=== PATIENT | female | born 1975 | race Caucasian/White ===

== ENCOUNTER → 2021-04-04 10:27 | Outpatient (CLI) | payer OTHER, SELFPAY ==
[2021-04-04 19:08] LABS: SARS-CoV-2 RNA PCR Negative
== END ==
PROVIDERS: PCP Family Medicine; Visit Provider Nurse Practitioner Gerontology
DX: R68.89 Other general symptoms and signs (principal); Z20.822 Contact with and (suspected) exposure to COVID-19
CPT/HCPCS: C9803; U0003; U0005

== ENCOUNTER → 2021-04-26 08:07 | Outpatient (CLI) | payer OTHER, SELFPAY ==
[2021-04-26 16:45] LABS: SARS-CoV-2 RNA PCR Positive
== END ==
PROVIDERS: Nurse Practitioner Gerontology; PCP Family Medicine; Visit Provider Family Medicine
DX: U07.1 COVID-19 (principal)
CPT/HCPCS: C9803; U0003; U0005

== ENCOUNTER 2021-11-09 09:08 | Outpatient (CLI) | payer OTHER, SELFPAY ==
--- NOTE | 2021-11-09 09:12 | EST_ITS ---
Patient Info Name: Elisa Galvan Age: 45 years : 1975 Gender: Female Ht: 67 in Wt: 320 lbs BSA: 2.70 m2 HR: 112 bpm BP: 125 / 81 mmHg Heart Rhythm: Sinus Rhythm Exam Date: 11/09/2021 11:00 AM Exam Location: [facility] Patient Status: Outpatient Admit Date: 11/09/2021 Staff Ordering Physician: Chris Mohr DO Land Leases [employer] Rentals Manager: [place] Attending Provider: Chris Mohr DO Exercise Technologist: Ana Rosa Vasquez RDCS Exercise Physician: Chris Mohr DO Exam Type: CA stress echo w contrast Study Info Treadmill exercise stress echocardiogram is performed. Contrast administered to opacify the left ventricle and to improve the deliniation of the left ventricular endocardial borders. Contrast/Agitated Saline Contrast/Ag. Saline: Definity Amount: 4.00 ml Administered By: Millie Huggins Existing IV Access: No New IV Access: Dorsum of Hand and Left Site Condition: IV removed and Site dressing applied Summary 1. 1. Negative Corky exercise stress test for ischemic ST changes by ECG criteria. 2. 2. Reduced functional capacity, achieving 6 METs of workload. 3. 3. Rapid HR response to exercise. 4. 4. Appropriate HR recovery at 1 minute post exercise. 5. 5. Negative stress echocardiogram for ischemia by wall motion analysis. 6. 6. Patient informed of the above results. Stress Echo Findings Left Ventricle Definity was used to improve endocardial visualization.Appropriate increase in LV endocardial thickening with systole. Appropriate augmentation of contractility with systole. No obvious wall motion abnormality. Left Ventricle Definity was used. Preserved LV systolic function, no wall motion abnormality. Protocol: Corky Stress ECG Details Stage: REST Duration (min): 2 min : 24 sec Speed (mph): 0.0 Grade (%): 0 HR (bpm): 109 SBP (mmHg): 125 DBP (mmHg): 81 METS: --- Stage: REST Duration (min): 35 min : 43 sec Speed (mph): 0.0 Grade (%): 0 HR (bpm): 122 SBP (mmHg): 125 DBP (mmHg): 81 METS: --- Stage: STAGE 1 Duration (min): 1 min : 0 sec Speed (mph): 1.7 Grade (%): 10 HR (bpm): 140 SBP (mmHg): 125 DBP (mmHg): 81 METS: --- Stage: STAGE 1 Duration (min): 2 min : 0 sec Speed (mph): 1.7 Grade (%): 10 HR (bpm): 151 SBP (mmHg): 125 DBP (mmHg): 81 METS: --- Stage: STAGE 1 Duration (min): 3 min : 0 sec Speed (mph): 1.7 Grade (%): 10 HR (bpm): 156 SBP (mmHg): 165 DBP (mmHg): 56 METS: --- Stage: STAGE 2 Duration (min): 1 min : 0 sec Speed (mph): 2.5 Grade (%): 12 HR (bpm): 162 SBP (mmHg): 165 DBP (mmHg): 56 METS: --- Stage: STAGE 2 Duration (min): 1 min : 1 sec Speed (mph): 0.0 Grade (%): 0 HR (bpm): 162 SBP (mmHg): 165 DBP (mmHg): 56 METS: --- Stage: RECOVERY Duration (min): 0 min : 58 sec Speed (mph): 0.0 Grade (%): 0 HR (bpm): 142 SBP (mmHg): 134 DBP (mmHg): 54 METS: --- Stage: RECOVERY Duration (min):
[2021-11-09] MEDS: PERFLUTREN LIPID MICROSPHERES 1.5 ML VIAL DILUTED TO 10 ML TOTAL VOLUME IV PUSH (11:30)
== END 2021-11-09 09:09 | disposition home or self-care (01) ==
PROVIDERS: PCP Family Medicine; Visit Provider Internal Medicine Cardiovascular Disease
DX: R06.09 Other forms of dyspnea (principal)
CPT/HCPCS: 93351; C8930; Q9957

== ENCOUNTER 2024-08-13 09:09 | Outpatient (CLI) | payer OTHER, SELFPAY ==
--- NOTE | ~2024-08-13 | XR_ITS ---
Left Hand Technique: PA and lateral views were obtained. Clinical History: Injury Findings: No acute fracture or dislocation is seen. Osseous alignment is anatomic. Joint spaces are p reserved. Soft tissues are unremarkable. Impression: Unremarkable left hand. Reviewed, dictated and finalized at location M. Impression: Unremarkable left hand.
== END 2024-08-13 09:10 | disposition home or self-care (01) ==
LOC: MICIMG 09:10
PROVIDERS: PCP Family Medicine; Visit Provider Student in an Organized Health Care Education/Training Program
DX: S69.92XA Unspecified injury of left wrist, hand and finger(s), initial encounter (principal); X58.XXXA Exposure to other specified factors, initial encounter
CPT/HCPCS: 73120

== ENCOUNTER 2024-12-23 21:08 | Emergency (ER) | payer OTHER, SELFPAY ==
--- NOTE | ~2024-12-23 | CT_ITS ---
EXAMINATION: CTA brain carotid DATE: 12/24/2024 05:40 INDICATION: Neck pain. Injury. TECHNIQUE: Computed tomographic angiography (CTA) of the head was performed without and with 100 mL Omnipaque-350 intravenous contrast. CTA of the neck was performed with intravenous contrast. Automated exposure control and iterative reconstruction technique were employed. The dose-length product was 3006.11 mGy- cm. Maximum intensity projection and volume rendered 3D-reconstructions were created by the technologist on a separate workstation. COMPARISON: None. FINDINGS: HEAD CTA: There is no intracranial hemorrhage, acute infarction, or abnormal intracranial mass lesion. There is an area of low attenuation in the left frontal lobe white matter, which is normal as an isolated finding. The ventricles are normal in size. The orbits are normal. The paranasal sinuses are clear. The mastoid air cells are normal. The vertebral arteries are codominant. There is no significant stenosis of basilar artery or the posterior cerebral arteries. Left posterior communicating artery is normal. A right posterior communicating artery is not identified. There is no significant stenosis of the intracranial internal carotid arteries or anterior or middle cerebral arteries. Anterior communicating artery is normal. There is no aneurysm. NECK CTA: There is a 1.9 x 1.6 cm mass in right parotid gland. There are no pathologically enlarged lymph nodes. There is no significant stenosis of the vertebral arteries. There is no visible plaque in the proximal internal carotid arteries. There is 0% stenosis of the proximal right internal carotid artery relative to normal distal artery lumen diameter (NASCET criteria). There is 0% stenosis of the proximal left internal carotid artery relative to normal distal artery lumen diameter. There is moderate cervical spondylosis. IMPRESSION: 1. Normal aging brain. 2. No aneurysm or significant intracranial arterial stenosis. 3. 0% stenosis of the proximal internal carotid arteries relative to normal distal artery lumen diameters (NASCET criteria). 4. 1.9 cm right parotid mass. The differential diagnosis includes benign mixed tumor, Warthin tumor, and less likely ari metastatic disease or primary malignancy. Reviewed, dictated and finalized at location E. IMPRESSION: 1. Normal aging brain. 2. No aneurysm or significant intracranial arterial stenosis. 3. 0% stenosis of the proximal internal carotid arteries relative to normal dis lamonte artery lumen diameters (NASCET criteria). 4. 1.9 cm right parotid mass. The differential diagnosis includes benign mixed tumor, Warthin tumor, and less likely ari metastatic disease or primary ramakrishna bruno.
[2024-12-23 21:10] VITALS: BP 152/86; PULSE 112; RESP 18; TEMP 36.6; O2SAT 100
[2024-12-24 03:13] VITALS: BP 151/94; PULSE 93; RESP 20; TEMP 36.8; O2SAT 100
[2024-12-24] MEDS: dexAMETHasone SOD PHOS INJ 10 MG/ML 1 ML VIAL IV PUSH (03:47)
[2024-12-24] MEDS: HYDROcodone/acetaminophen (*CRX) 5-325 MG TABLET 1 TAB PO (03:47)
[2024-12-24] MEDS: diazePAM INJ (*CRX) 10 MG/2 ML SYRINGE 5 MG IV PUSH (03:47)
[2024-12-24] MEDS: LIDOCAINE 5% PATCH 1 PATCH TRANSDERM (03:47)
[2024-12-24 03:48] VITALS: BP 141/79; PULSE 109; RESP 18; O2SAT 97
[2024-12-24 03:58] LABS: Hematocrit 42.5 % (37.0-47.0); Hemoglobin 14.3 g/dL (12.0-15.0); Immature Granulocyte Percent A 0.4 % (0-0.5); Lymphocytes Absolute Auto 1.60 K/mm3 (0.9-3.2); Mean Corpuscular HGB Conc 33.6 g/dl (32-36); Mean Corpuscular Hemoglobin 29.5 pg (26-34); Mean Corpuscular Volume 87.8 fl (80-100); Nucleated Red Blood Cells Absolute Auto 0.000 K/mm3 (0.0-0.012); Nucleated Red Blood Cells Perc 0.0 % (0.0-0.2); Platelet Count Result 285 k/mm3 (150-375); Red Blood Count 4.84 M/mm3 (4.2-5.4); White Blood Count 13.8 K/mm3 (4.5-10.0)
[2024-12-24 04:11] LABS: Alanine Aminotransferase 19 U/L (6-35); Albumin Level 4.4 g/dL (3.5-5.1); Alkaline Phosphatase 77 U/L (38-126); Anion Gap 11 mmol/L (4-12); Aspartate Amino Transferase 19 U/L (14-36); Bilirubin,Total 0.8 mg/dL (0.2-1.3); Blood Urea Nitrogen 12 mg/dL (7-17); Calcium 9.1 mg/dL (8.4-10.2); Carbon Dioxide 23 mmol/L (22-30); Chloride 100 mmol/L (98-107); Estimated CRCL calculation 126 ml/min; Estimated Glomerular Filt Rate > 60; Glucose 146 mg/dL (65-110); Potassium 4.0 mmol/L (3.4-5.0); Sodium 134 mmol/L (137-145); Total Protein 8.3 g/dL (6.3-8.2)
--- NOTE | 2024-12-24 04:49 | ED_ITS ---
HPI - General Adult General Chief complaint: Neck Pain/Injury <Arian Schofield MD - Last Filed: 12/24/24 04:51> Stated complaint: neck spasms <Arian Schofield MD - Last Filed: 12/24/24 04:51> Time Seen by Provider: 12/24/24 03:18 <Arian Schofield MD - Last Filed: 12/24/24 04:51> History of Present Illness HPI narrative: Patient is a 49-year-old female who presents emergency department with chief complaint of neck pain and spasms patient reports she has been having some neck pain for several days and then went to the chiropractor was adjusted and had some improvement but then started having spasms in her neck that shot up to her left ear the patient states the pain is worse with movement and improved with rest the patient denies bowel or bladder incontinence denies numbness or tingling denies weakness in the arms or numbness or tingling in the arms. The patient denies syncope <Arian Schofield MD - Last Filed: 12/24/24 04:51> Related Data Home medications: Home Medications ?Medication ?Instructions ?Recorded ?Confirmed ?Last Taken ?Type omega 9-xil-ero-fish oil 1,000 mg 1 cap PO BID 3 11/23/24 Unknown History (120 mg-180 mg) capsule (Fish Oil) <Arian Schofield MD - Last Filed: 12/24/24 04:51> Allergies/adverse reactions: Allergies Allergy/AdvReac Type Severity Reaction Status Date / Time No Known Allergies Allergy Unknown Verified 11/23/24 07:50 <Arian Schofield MD - Last Filed: 12/24/24 04:51> Review of Systems 2 Review of Systems: A 10 system review of systems was completed on the patient and is negative except for what is stated in the HPI. Nursing and ancillary documentation was reviewed. <Arian Schofield MD - Last Filed: 12/24/24 04:51> PMFSH Past Medical History Medical History: Medical History Bronchitis Flu-like symptoms Strep pharyngitis Subacute sinusitis Prediabetes Mixed hyperlipidemia Morbid obesity due to excess calories PCOS (polycystic ovarian syndrome) Hypothyroidism (acquired) <Arian Schofield MD - Last Filed: 12/24/24 04:51> Surgical History Surgical History: Surgical History History of tympanostomy tube placement History of laparoscopic cholecystectomy <Arian Schofield MD - Last Filed: 12/24/24 04:51> Family History Family History: Family History Father Hypertension Family history of coronary artery disease Family history of type 2 diabetes mellitus Thyroid cancer Bladder cancer Dementia Parkinson's disease Mother Hypertension Family history of type 2 diabetes mellitus Sibling Family history of type 2 diabetes mellitus Other Diabetes mellitus Family history of alcoholism Family history of malignant neoplasm of breast in first degree relative Family history of malignant neoplasm of cervix <Arian Schofield MD - Last Filed: 12/24/24 04:51> Social History Social History: Social History Social History: Smoking packs per day: 1 Smoking cigarettes per day: 20.0 Smoking status: Former smoker Tobacco type: cigarettes Second hand tobacco smoke exposure: No Smoking end date: 03/11/96 Alcohol intake: never Substance use: never Substance use type: does not use Do You Feel Safe in your Home?: Yes Lack of Transportation: No Lack of Food: Never True Current Housing: I Have Housing Concerned About Future Housing: No Difficulty Paying Gas/Electric Bills: No Difficulty Paying for Meds: No Currently Unemployed: No Education: Don't Know Difficulty w/ Childcare or Family Care: No Living arrangements: with family Occupation/Education: occupation Gender identity (if verbalized by the patient): Female Sexual Orientation (if Verbalized by the Patient): Straight or Heterosexual <Arian Schofield MD - Last Filed: 12/24/24 04:51> Exam 2 Narrative: GENERAL: Well-appearing, well-nourished, and in no acute distress. HEAD: Normocephalic, atraumatic. EYES: PERRLA and EOMI. ENT: Nares clear, no rhinorrhea or epistaxis. Mucous membranes moist. NECK: Supple. Tenderness to palpation the paraspinous muscles in the neck CHEST: Clear to auscultation. No respiratory distress. HEART: Regular rate and rhythm. No murmur heard. Normal peripheral pulses. ABDOMEN: Soft, nontender, nondistended, normal active bowel sounds. EXTREMITIES: Normal range of motion. No edema. SKIN: Warm, dry, no rash. NEURO: No focal deficits. Alert and oriented x3. PSYCH: Normal mood and affect. <Arian Schofield MD - Last Filed: 12/24/24 04:51> Course Course Emergency Course: 06:00 - This patient was signed out to me by previous ED physician, Dr. Schofield pending CTA. 08:38 - CT angiogram brain and neck not concerning for aneurysm, dissection or acute vascular injury. CT of the neck and head demonstrated a 1.9 cm right parotid mass that is concerning for malignancy. On re-evaluation, the patient states she feels improved to though her pain is returning somewhat. Will discharge with recommendation for primary care and ENT follow-up in addition to pain medications and muscle relaxers. I discussed the findings and recommendations with the patient. Discussed return and emergency precautions including signs/symptoms of focal neural deficit and cauda equina. The patient voiced understanding and agreement with the plan. All questions answered to her satisfaction. <Abdirashid Estrada MD - Last Filed: 12/24/24 19:49> Vital Signs Vital signs: Vital Signs Temperature 97.8 F 12/23/24 21:10 Pulse Rate 112 H 12/23/24 21:10 Respiratory Rate 18 12/23/24 21:10 Blood Pressure 152/86 H 12/23/24 21:10 Pulse Oximetry 100 12/23/24 21:10 Oxygen Delivery Room Air 12/23/24 21:10 Temperature 98.2 F 12/24/24 03:13 Pulse Rate 100 12/24/24 08:30 Respiratory Rate 16 12/24/24 08:30 Blood Pressure 119/74 12/24/24 08:30 Pulse Oximetry 96 12/24/24 08:30 Oxygen Delivery Room Air 12/24/24 03:13 <Arian Schofield MD - Last Filed: 12/24/24 04:51> Vital Signs Temperature 97.8 F 12/23/24 21:10 Pulse Rate 112 H 12/23/24 21:10 Respiratory Rate 18 12/23/24 21:10 Blood Pressure 152/86 H 12/23/24 21:10 Pulse Oximetry 100 12/23/24 21:10 Oxygen Delivery Room Air 12/23/24 21:10 Temperature 98.2 F 12/24/24 03:13 Pulse Rate 100 12/24/24 08:30 Respiratory Rate 16 12/24/24 08:30 Blood Pressure 119/74 12/24/24 08:30 Pulse Oximetry 96 12/24/24 08:30 Oxygen Delivery Room Air 12/24/24 03:13 <Abdirashid Estrada MD - Last Filed: 12/24/24 19:49> Medical Decision Making MDM Narrative Medical decision making narrative: Plan: CT angiogram, pain control, reassess <Abdirashid Estrada MD - Last Filed: 12/24/24 19:49> Differential Diagnosis Differential Diagnosis: Aneurysm, dissection, cervical muscle strain, fracture, other <Abdirashid Estrada MD - Last Filed: 12/24/24 19:49> Vital Signs Vital Signs: Vital Signs Temperature 97.8 F 12/23/24 21:10 Pulse Rate 112 H 12/23/24 21:10 Respiratory Rate 18 12/23/24 21:10 Blood Pressure 152/86 H 12/23/24 21:10 Pulse Oximetry 100 12/23/24 21:10 Oxygen Delivery Room Air 12/23/24 21:10 Temperature 98.2 F 12/24/24 03:13 Pulse Rate 100 12/24/24 08:30 Respiratory Rate 16 12/24/24 08:30 Blood Pressure 119/74 12/24/24 08:30 Pulse Oximetry 96 12/24/24 08:30 Oxygen Delivery Room Air 12/24/24 03:13 <Arian Schofield MD - Last Filed: 12/24/24 04:51> Vital Signs Temperature 97.8 F 12/23/24 21:10 Pulse Rate 112 H 12/23/24 21:10 Respiratory Rate 18 12/23/24 21:10 Blood Pressure 152/86 H 12/23/24 21:10 Pulse Oximetry 100 12/23/24 21:10 Oxygen Delivery Room Air 12/23/24 21:10 Temperature 98.2 F 12/24/24 03:13 Pulse Rate 100 12/24/24 08:30 Respiratory Rate 16 12/24/24 08:30 Blood Pressure 119/74 12/24/24 08:30 Pulse Oximetry 96 12/24/24 08:30 Oxygen Delivery Room Air 12/24/24 03:13 <Abdirashid Estrada MD - Last Filed: 12/24/24 19:49> Lab Data Result diagrams: 12/24/24 03:49 12/24/24 03:49 <Arian Schofield MD - Last Filed: 12/24/24 04:51> Labs: Lab Results 12/24/24 Range/Units 03:49 WBC 13.8 H (4.5-10.0) K/mm3 RBC 4.84 (4.2-5.4) M/mm3 Hgb 14.3 (12.0-15.0) g/dL Hct 42.5 (37.0-47.0) % MCV 87.8 (80-100) fl MCH 29.5 (26-34) pg MCHC 33.6 (32-36) g/dl RDW 13.8 (11.5-14.5) % Plt Count 285 (150-375) k/mm3 MPV 10.3 (7.4-10.4) fl Immature Gran % (Auto) 0.4 (0-0.5) % Neut % (Auto) 81.8 H (45.5-73.1) % Lymph % (Auto) 11.6 L (18.3-44.2) % [place] % (Auto) 5.3 (2.6-8.5) % Eos % (Auto) 0.5 (0-4.4) % Baso % (Auto) 0.4 (0.2-1.2) % Lymph # (Auto) 1.60 (0.9-3.2) K/mm3 [place] # (Auto) 0.7 H (0.1-0.6) K/mm3 Eos # (Auto) 0.1 (0-0.3) K/mm3 Baso # (Auto) 0.1 (0.0-0.1) K/mm3 Abs Immat Gran (auto) 0.06 H (0.00-0.031) K/mm3 Absolute Neuts (auto) 11.3 H (1.3-6.7) K/mm3 Absolute Nucleated RBC 0.000 (0.0-0.012) K/mm3 Nucleated RBC % 0.0 (0.0-0.2) % Sodium 134 L (137-145) mmol/L Potassium 4.0 (3.4-5.0) mmol/L Chloride 100 (98-107) mmol/L Carbon Dioxide 23 (22-30) mmol/L Anion Gap 11 (4-12) mmol/L BUN 12 (7-17) mg/dL Creatinine 0.68 L (0.7-1.0) mg/dL Estim Creat Clear Calc 126 ml/min Estimated GFR > 60 (59 - ) Glucose 146 H (65-110) mg/dL Calcium 9.1 (8.4-10.2) mg/dL Total Bilirubin 0.8 (0.2-1.3) mg/dL AST 19 (14-36) U/L ALT 19 (6-35) U/L Alkaline Phosphatase 77 (38-126) U/L Total Protein 8.3 H (6.3-8.2) g/dL Albumin 4.4 (3.5-5.1) g/dL <Arian Schofield MD - Last Filed: 12/24/24 04:51> Lab Results 12/24/24 Range/Units 03:49 WBC 13.8 H (4.5-10.0) K/mm3 RBC 4.84 (4.2-5.4) M/mm3 Hgb 14.3 (12.0-15.0) g/dL Hct 42.5 (37.0-47.0) % MCV 87.8 (80-100) fl MCH 29.5 (26-34) pg MCHC 33.6 (32-36) g/dl RDW 13.8 (11.5-14.5) % Plt Count 285 (150-375) k/mm3 MPV 10.3 (7.4-10.4) fl Immature Gran % (Auto) 0.4 (0-0.5) % Neut % (Auto) 81.8 H (45.5-73.1) % Lymph % (Auto) 11.6 L (18.3-44.2) % [place] % (Auto) 5.3 (2.6-8.5) % Eos % (Auto) 0.5 (0-4.4) % Baso % (Auto) 0.4 (0.2-1.2) % Lymph # (Auto) 1.60 (0.9-3.2) K/mm3 [place] # (Auto) 0.7 H (0.1-0.6) K/mm3 Eos # (Auto) 0.1 (0-0.3) K/mm3 Baso # (Auto) 0.1 (0.0-0.1) K/mm3 Abs Immat Gran (auto) 0.06 H (0.00-0.031) K/mm3 Absolute Neuts (auto) 11.3 H (1.3-6.7) K/mm3 Absolute Nucleated RBC 0.000 (0.0-0.012) K/mm3 Nucleated RBC % 0.0 (0.0-0.2) % Sodium 134 L (137-145) mmol/L Potassium 4.0 (3.4-5.0) mmol/L Chloride 100 (98-107) mmol/L Carbon Dioxide 23 (22-30) mmol/L Anion Gap 11 (4-12) mmol/L BUN 12 (7-17) mg/dL Creatinine 0.68 L (0.7-1.0) mg/dL Estim Creat Clear Calc 126 ml/min Estimated GFR > 60 (59 - ) Glucose 146 H (65-110) mg/dL Calcium 9.1 (8.4-10.2) mg/dL Total Bilirubin 0.8 (0.2-1.3) mg/dL AST 19 (14-36) U/L ALT 19 (6-35) U/L Alkaline Phosphatase 77 (38-126) U/L Total Protein 8.3 H (6.3-8.2) g/dL Albumin 4.4 (3.5-5.1) g/dL <Abdirashid Estrada MD - Last Filed: 12/24/24 19:49> Discharge Plan Discharge Clinical Impression: Mass of right parotid gland Acute cervical myofascial strain Qualifiers: Encounter type: initial encounter Qualified Code(s): S16.1XXA - Strain of muscle, fascia and tendon at neck level, initial encounter <Arian Schofield MD - Last Filed: 12/24/24 04:51> Patient Disposition: Home <Arian Schofield MD - Last Filed: 12/24/24 04:51> Condition: Stable <Arian Schofield MD - Last Filed: 12/24/24 04:51> Instructions: Antibiotic Form, Cervical Strain (ED) <Arian Schofield MD - Last Filed: 12/24/24 04:51> Additional Instructions: You were seen in the emergency department. A CT scan of the head and neck was not concerning for injury to the blood vessels. A 1.9 cm mass was seen in the right parotid gland however. I recommend following up with an Ear Nose and Throat surgeon and considering MRI and potentially biopsy for further evaluation. If you develop difficulty breathing, difficulty swallowing, weakness/numbness, or if you have other emergent concerns for life, limb, or eyesight, return to the emergency department. <Arian Schofield MD - Last Filed: 12/24/24 04:51> Patient Language: Gibraltarian <Arian Schofield MD - Last Filed: 12/24/24 04:51> Prescriptions: New cyclobenzaprine 10 mg tablet 10 mg PO TID PRN (Reason: muscle spasm) Qty: 15 0RF lidocaine 5 % adhesive patch,medicated 1 patch topical DAILY Qty: 30 0RF Rx Instructions: leave on most painful area for up to 12 hrs naproxen 500 mg tablet 500 mg PO BID PRN (Reason: pain) Qty: 20 0RF No Action omega 7-ksb-lss-fish oil [Fish Oil] 1,000 mg (120 mg-180 mg) capsule 1 cap PO BID azelastine 137 mcg (0.1 %) aerosol,spray 137 mcg intranasal Q12H Qty: 30 0RF Rx Instructions: administer into each nostril spironolactone 100 mg tablet See Rx Instructions .ROUTE .COMPLEX Qty: 100 3RF Dose Instruction: TAKE 1 TABLET DAILY Rx Instructions: TAKE 1 TABLET DAILY hydroxyzine HCl 25 mg tablet 25 mg PO TID PRN (Reason: anxiety) Qty: 60 0RF fluticasone propionate 50 mcg/actuation spray,suspension 1 spray intranasal DAILY Qty: 48 0RF Rx Instructions: administer into each nostril desloratadine 5 mg tablet See Rx Instructions .ROUTE .COMPLEX Qty: 100 3RF Dose Instruction: TAKE 1 TABLET DAILY Rx Instructions: TAKE 1 TABLET DAILY rosuvastatin 5 mg tablet See Rx Instructions .ROUTE .COMPLEX Qty: 100 3RF Dose Instruction: TAKE 1 TABLET DAILY Rx Instructions: TAKE 1 TABLET DAILY escitalopram oxalate 10 mg tablet 10 mg PO DAILY Qty: 90 1RF metformin 1,000 mg tablet See Rx Instructions .ROUTE .COMPLEX Qty: 180 2RF Dose Instruction: TAKE 1 TABLET TWICE A DAY Rx Instructions: TAKE 1 TABLET TWICE A DAY irbesartan-hydrochlorothiazide 150-12.5 mg tablet See Rx Instructions .ROUTE .COMPLEX Qty: 100 2RF Dose Instruction: TAKE 1 TABLET DAILY Rx Instructions: TAKE 1 TABLET DAILY levothyroxine 175 mcg tablet 175 mcg PO DAILY Qty: 108 1RF Rx Instructions: 1 tab daily, 2 each sat and sun Mounjaro 10 mg/0.5 mL pen injector 10 mg subcut WEEKLY Qty: 6 2RF <Arian Schofield MD - Last Filed: 12/24/24 04:51> Follow-up/Referrals: Baldev Polk MD [Primary Care Provider, Family Practice] - 2 Weeks Sukumar Clay MD [Physician, Ear, Nose, Throat] - 2 Weeks Referral Note: 1.9cm Right parotid mass concerning for malignancy <Arian Schofield MD - Last Filed: 12/24/24 04:51> Time of Disposition: 09:02 <Arian Schofield MD - Last Filed: 12/24/24 04:51> 09:02 <Abdirashid Estrada MD - Last Filed: 12/24/24 19:49> Sign Out Sign Out Data: Patient Sign Out occurred on 12/24/24 at 06:11. Patient's care was discussed, and care was transferred from Arian Schofield MD to Abdirashid Estrada MD. <Arian Schofield MD - Last Filed: 12/24/24 04:51>
[2024-12-24 06:30] VITALS: BP 133/80; PULSE 95; RESP 18; O2SAT 94
[2024-12-24 07:15] VITALS: BP 131/89; PULSE 96; RESP 16; O2SAT 97
[2024-12-24 08:30] VITALS: BP 119/74; PULSE 100; RESP 16; O2SAT 96
[2024-12-24] MEDS: KETOROLAC 30 MG/ML VIAL (*BKC) IV PUSH (08:44)
== END 2024-12-24 09:28 | disposition home or self-care (01) ==
PROVIDERS: Emergency Medicine; Emergency Provider Preventive Medicine Aerospace Medicine; PCP Family Medicine
DX: S16.1XXA Strain of muscle, fascia and tendon at neck level, initial encounter (principal); K11.9 Disease of salivary gland, unspecified; R73.03 Prediabetes; E78.2 Mixed hyperlipidemia; E66.01 Morbid (severe) obesity due to excess calories; Z68.42 Body mass index [BMI] 45.0-49.9, adult; E28.2 Polycystic ovarian syndrome; E03.9 Hypothyroidism, unspecified; Z87.891 Personal history of nicotine dependence; Z90.49 Acquired absence of other specified parts of digestive tract; X58.XXXA Exposure to other specified factors, initial encounter
CPT/HCPCS: 36415; 70496; 70498; 80053; 85025; 96374; 96375; 99284; A9270; J1100; J1885; J3360; Q9967

== ENCOUNTER 2025-03-08 01:44 | Day surgery (SDC) | payer OTHER, SELFPAY ==
[2025-02-10 15:14] VITALS: BMI 46.3
--- OUTSIDE RECORDS SUMMARY | 2025-03-08 01:46 | XMS_ITS | Clinical Summary ---
Author Organization [facility] [place] Address [address] [place] [id number] Care Team Providers Care Diagnostic Tech Name Role Phone Cyndy Davidson MD Primary Care Provider [phone] Allergies No known active allergies Medications spironolactone (ALDACTONE) 100 mg tabletIndication s:PCOS (polycystic ovarian syndrome) Take 1 Tablet (100 mg) by mouth daily. 90 Tablet 3 12/14/2020 Active desloratadine (CLARINEX) 5 mg tabletIndication s:Allergic rhinitis, unspecified seasonality, unspecified trigger Take 1 Tablet (5 mg) by mouth daily. 90 Tablet 3 12/14/2020 Active minocycline (MINOCIN) 100 mg capsule Take 1 Capsule (100 mg) by mouth every 12 hours. 180 Capsule 3 12/14/2020 Active multivitamin (DAILY-ARIELLE) tablet Take 1 Tablet by mouth daily. Active omega 6-fyd-abs-fish oil (Fish OiL) 100-160-1,000 mg Capsule Take 1 Capsule by mouth 2 times daily. Active Jardiance 25 mg tablet Take 1 Tablet by mouth daily. 01/09/2022 Active irbesartan-hydro CHLOROthiazide (AVALIDE) 150-12.5 mg tablet Take 1 Tablet by mouth daily. 01/01/2022 Active cyanocobalamin (VITAMIN B-12) 500 mcg tablet Take 500 mcg by mouth daily. Active metFORMIN (GLUCOPHAGE) 1,000 mg tabletIndication s:Type 2 diabetes mellitus without complication, without long-term current use of insulin (CMS/HCC) Take 1 Tablet (1,000 mg) by mouth 2 times daily with meals. 180 Tablet 02/23/2022 Active levothyroxine 200 mcg tablet TAKE 1 TABLET DAILY 90 Tablet 09/18/2022 Active Active Problems Problem Noted Date Diagnosed Date Abnormal EKG 01/11/2022 PCOS (polycystic ovarian syndrome) 01/11/2022 Morbid obesity with BMI of 50.0-59.9, adult 1105/2021 Hypothyroidism 01/11/2022 Hyperlipidemia 01/11/2022 B12 deficiency 01/11/2022 PRICE (nonalcoholic steatohepatitis) 01/11/2022 DANIELLA (obstructive sleep apnea) 03/22/2021 Essential hypertension, benign 03/22/2021 Type 2 diabetes mellitus with other specified co mplication 03/22/2021 Morbid obesity 03/22/2021 Immunizations Immunization Administration Dates Next Due ([facility])(12 YR UP) COVID-19 VACCINE - EMERGENCY USE AUTHORIZATION, MRNA, [id number](PF) 30 MCG/0.3 ML IM SUSP 06/04/2020,05/12/2020 INFLUENZA VACCINE QUADRIVALENT 6 MOS UP PF IM Family History Medical History Relation Name Comments Diabetes Brother (twin) Hypertension Brother (twin) Cancer Father Willy bladder Diabetes Father Willy Esophageal Cancer Father Willy Heart Disease Father Willy Hypertension Father Willy Lung Cancer Father Willy Stroke Father Willy Heart Disease Maternal Grandfather Cisco SD Cancer Maternal Grandmother Cassy cervica l ca Ovarian Cancer Maternal Grandmother Cassy Diabetes Mother Bety Hypertension Mother Bety Kidney Disease Mother Bety Heart Disease Paternal Grandfather Unruly SD or stroke? Diabetes Sister Veronica Relation Name Status Comments Brother (twin) Alive Father Willy Alive Maternal Grandfather Cisco Maternal Grandmother Cassy Mother Bety Alive Paternal Grandfather Unruly Paternal Grandmother Sister Veronica Alive Social History Tobacco Use Types Packs/Day Years Used Date Smoking Tobacco: Never Smokeless Tobacco: Never Tobacco Cessation:Counseling Given: Not Answered Alcohol Use Standard Drinks/Week Comments Not Currently 0 (1 standard drink = 0.6 oz pur e alcohol) occasional Comments No Sex and Gender Information Value Date Recorded Sex Assigned at Not on file Legal Sex Female 3:13 PM CDT Gender Identity Not on file Sexual Orientation Not on file Last Filed Vital Signs Vital Sign Reading Time Taken Comments Blood Pressure 126/64 02/23/2022 9:03 AM TRANSPORTATION PROJECT MANAGER Pulse 82 02/23/2022 9:03 AM TRANSPORTATION PROJECT MANAGER Temperature 36.5 C (97.7 F) 02/23/2022 9:03 AM TRANSPORTATION PROJECT MANAGER Respiratory Rate 18 02/23/2022 9:03 AM TRANSPORTATION PROJECT MANAGER Oxygen Saturation 98% 02/23/2022 9:03 AM TRANSPORTATION PROJECT MANAGER Inhaled Oxygen Concentration - - Weight 141.1 kg (311 lb) 02/23/2022 9:03 AM TRANSPORTATION PROJECT MANAGER Height 167.6 cm (5' 6) 02/23/2022 9:03 AM TRANSPORTATION PROJECT MANAGER Body Mass Index 50.2 02/23/2022 9:03 AM TRANSPORTATION PROJECT MANAGER Plan of Treatment Health Maintenance Due Date Last Done Comments DIABETES ANNUAL FOOT EXAM 12/16/1993 DIABETES ANNUAL RETINAL EXAM 12/16/1993 DTAP/TDAP/TD VACCINES (1 - Tdap) 12/16/1994 HEPATITIS B VACCINES (1 of 3 - 19+ 3-dose series) 12/16/1994 HPV/Cotest (21-29) 12/16/1996 HPV/Cotest (30-65) 12/16/2005 BREAST CANCER SCREENING 10/17/2018 10/17/2017 CERVICAL CANCER SCREENING 10/17/2020 PAP SMEAR 10/17/2020 10/17/2017 COLORECTAL SCREENING 12/16/2020 Colorectal Cancer Screening 12/16/2020 FIT-DNA Q 3 years 12/16/2020 FIT/FOBT Q 1 year 12/16/2020 Flex Sig/CT Colonography Q 5 years 12/16/2020 LDL CHOLESTEROL ANNUAL 12/20/2021 12/20/2020 DIABETES HBA1C Q 6 MONTHS 08/24/2022 02/23/2022, 02/2021 DIABETES MICROALBUMIN ANNUAL SCREEN 02/23/202302/23 INFLUENZA VACCINE (#1) 2024 02/01/2021 COVID-19 Vaccine ( season) 2024, 05/12/2020 Procedures Procedure Name Priority Date/Time Associated Diagnosis Comments MICROALBUMIN/CREATI NINE RATIO, RANDOM UR Routine 02/23/2022 9:46 AM TRANSPORTATION PROJECT MANAGER Type 2 diabetes mellitus without complication, without long-term current use of insulin ([facility]) HEMOGLOBIN A1C Routine 02/23/2022 9:46 AM TRANSPORTATION PROJECT MANAGER Type 2 diabetes mellitus without complication, without long-term current use of insulin ([facility]) LIPID PANEL Routine 12/20/2020 9:07 AM CDT Benign hypertension Mixed hyperlipidemia PCOS (polycystic ovarian syndrome) Hypothyroidism, unspecified type from Last 3 Months or Most Recently Relevant to Health Maintenance Results * MICROALBUMIN/CREATININE RATIO, RANDOM UR (02/23/2022 9:46 AM TRANSPORTATION PROJECT MANAGER) Creatinine, Urine 39 20 - 275 mg/dL [facility] MICROALBUMIN, URINE <0.2 See Note: mg/dL [facility] Comment: Reference Range: Reference Range Not established MICROALBUMIN/CREAT RATIO, UR NOTE <30 mcg/mg creat [facility] Comment: NOTE: The urine albumin value is less than 0.2 mg/dL therefore we are unable to calculate excretion and/or creatinine ratio. The ADA defines abnormalities in albumin excretion as follows: Albuminuria Category Result (mcg/mg creatinine) Normal to Mildly increased <30 Moderately increased 30-299 Severely increased > OR = 300 The ADA recommends that at least two of three specimens collected within a 3-6 month period be abnormal before considering a patient to be within a diagnostic category. Test Performed at: [facility] [id number] [id number] Ankit Woo D.O., MPH Urine URINE SPECIMEN OBTAINED BY CLEAN CATCH PROCEDURE / Unknown 02/23/2022 9:46 AM TRANSPORTATION PROJECT MANAGER 02/24/2022 5:37 AM TRANSPORTATION PROJECT MANAGER Samantha Perez [facility] URINE ORDERABLES Final Result [facility] [phone] [facility] [id number] [id number] * (ABNORMAL) HEMOGLOBIN A1C (02/23/2022 9:46 AM TRANSPORTATION PROJECT MANAGER) HEMOGLOBIN A1C 6.5(H) <5.7 % of total Hgb [facility] Comment: For someone without known diabetes, a hemoglobin A1c value of 6.5% or greater indicates that they may have diabetes and this should be confirmed with a follow-up test. For someone with known diabetes, a value <7% indicates that their diabetes is well controlled and a value greater than or equal to 7% indicates suboptimal control. A1c targets should be individualized based on duration of diabetes, age, comorbid conditions, and other considerations. Currently, no consensus exists regarding use of hemoglobin A1c for diagnosis of diabetes for children. ESTIMATED AVERAGE GLUCOSE (MG/DL) 140 mg/dL [facility] ESTIMATED AVERAGE GLUCOSE (MMOL/L) 7.7 mmol/L [facility] Comment: Test Performed at: [facility] [address] [facility] [place] [address] Ankit Woo D.O., MPH Blood 02/23/2022 9:46 AM TRANSPORTATION PROJECT MANAGER 02/24/2022 5:50 AM TRANSPORTATION PROJECT MANAGER Samantha Perez [facility] CHEMISTRY ORDERABLES F inal Result [facility] [phone] [facility] [address] [facility] [place] [address] * (ABNORMAL) LIPID PANEL (12/20/2020 9:07 AM CDT) CHOLESTEROL 148 <200 mg/dL [facility] HDL 38(L) > OR = 50 mg/dL [facility] TRIGLYCERIDE 256(H) <150 mg/dL [facility] Comment: If a non-fasting specimen was collected, consider repeat triglyceride testing on a fasting specimen if clinically indicated. Barrett et al. J. of Clin. Lipidol. 2015;9:129-169. LDL CALCULATED 76 mg/dL (calc) [facility] Comment: Reference range: <100 Desirable range <100 mg/dL for primary prevention; <70 mg/dL for patients with CHD or diabetic patients with > or = 2 CHD risk factors. LDL-C is now calculated using the Marium calculation, which is a validated novel method providing better accuracy than the Friedewald equation in the estimation of LDL-C. Mick ROMO et al. FRANCISCO J. 2013;310(19): 7527-0719 (http://education.Phlexglobal/faq/NLS562) CHOL/HDL RATIO 3.9 <5.0 (calc) [facility] TOTAL NON-HDL CHOL(LDL+VLDL) 110 <130 mg/dL (calc) [facility] Comment: For patients with diabetes plus 1 major ASCVD risk factor, treating to a non-HDL-C goal of <100 mg/dL (LDL-C of <70 mg/dL) is considered a therapeutic option. Test Performed at: [facility] [address] [place] [address] Ankit Woo D.O., MPH Blood 12/20/2020 9:07 AM CDT 12/21/2020 9:10 AM CDT us Fawad Peck MD CHEMISTRY ORDERABLES Final R esult [facility] [address] [place] [address] from Last 3 Months or Most Recently Relevant to Health Maintenance Insurance [employer] Care Teams Diagnostic Tech Relationship Specialty Start Date End Date Cyndy Davidson MD PCP - General Family Practice 03/22/21
--- OUTSIDE RECORDS SUMMARY | 2025-03-08 01:46 | XMS_ITS | Clinical Summary ---
Author Organization [facility] Address [address] [place] [address] Care Team Providers Care Upper Leather Cutter Name Role Phone Cyndy Davidson MD Primary Care Provider + Source Comments [facility],non-owned Affiliates and Associated Physician Practices is amultiple site organization consisting of ambulatory clinics and hospital sitesin [place], [place], [place] and [place]. This disclosure is being madepursuant to the Care Everywhere program and may not contain all information available regarding this patient. Last updated 17.[facility] Allergies No known active allergies Medications * Be aware that medications may not be up to date on this document. Alwaysverify current medications with the patient. levothyroxine (SYNTHROID) 175 MCG tablet TK 1 T PO QD IN THE MORNING OES 3 09/18/2017 Active SYNJARDY 12.5-1000 MG tablet TK 1 T PO QD 2 09/06/2017 Active metFORMIN (GLUCOPHAGE) 500 MG tablet TK 1 T PO D WITH A MEAL 2 09/06/2017 Active minocycline (MINOCIN) 100 MG capsule 3 09/06/2017 Active topiramate (TOPAMAX) 25 MG tablet TK 2 TS PO ONCE A DAY 3 09/14/2017 Active spironolactone (ALDACTONE) 100 MG tablet 100 mg once daily 1 09/19/2017 Active Phendimetrazine Tartrate 105 MG TK ONE C PO BEFORE MORNING MEAL ONCE D 1 09/06/2017 Active Active Problems Problem Noted Date Diagnosed Date Hirsutism 09/25/2012 Irregular menstrual cycle 06/21/2011 STAS III (cervical intraepithelial neoplasia III) 12/21/2010 Human papilloma virus infection 07/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 Family History Medical History Relation Name Comments Cancer - Esophageal Father Cancer - Breast Paternal Aunt Relation Name Status Comments Father Paternal Aunt Social History Tobacco Use Types Packs/Day Years Used Date Smoking Tobacco: Never Smokeless Tobacco: Never Alcohol Use Standard Drinks/Week Comments No 0 (1 standard drink = 0.6 oz pur e alcohol) Comments No Sex and Gender Information Value Date Recorded Sex Assigned at Not on file 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 [employer] Gender Identity Not on file Sexual Orientation Not on file Last Filed Vital Signs Vital Sign Reading Time Taken Comments Blood Pressure 122/70 10/17/2017 9:30 AM CDT Pulse 76 07/25/2016 11:27 AM CDT Temperature 37.3 C (99.2 F) 07/25/2016 11:27 AM CDT Respiratory Rate 18 07/25/2016 11:27 AM CDT Oxygen Saturation 97% 07/25/2016 11:27 AM CDT Inhaled Oxygen Concentration - - Weight 125.2 kg (276 lb) 10/17/2017 9:30 AM CDT Height 172.7 cm (5' 8) 10/17/2017 9:30 AM CDT Body Mass Index 41.97 10/17/2017 9:30 AM CDT Plan of Treatment Health Maintenance Due Date Last Done Comments COLOGUARD (AGES 45-75) - COL ON CA SCREENING 1975 COLON MONITORING 1975 COLONOSCOPY - COLON CA SCREENING 1975 CT COLONOGRAPHY - COLON CA SCREENING 1975 Colorectal Cancer Screening 1975 FIT - COLON CA SCREENING 1975 FLEX SIG - COLON CA SCREENING 1975 HIV SCREENING 12/16/1990 HEPATITIS C SCREENING 12/12/1993 DTAP/TDAP/TD VACCINES (1 - Tdap) 12/16/1994 HEPATITIS B VACCINE (1 of 3 - 19+ 3-dose series) 12/16/1994 LIPID TESTING 09/27/2017 09/27/2012 SCREENING FOR DIABETES 10/17/2017 09/27/2012 MAMMOGRAM 10/18/2019 10/17/2017 PAP with HPV 10/17/2022 10/17/2017 DEPRESSION SCREENING 03/11/2024 COVID-19 VACCINE (1 - 2024-2 6 season) 2024 INFLUENZA VACCINE (#1) 2024 ZOSTER VACCINE (1 of 2) 12/16/2025 HIB VACCINE Aged Out No longer eligi ble based on patient's age to complete this topic HPV VACCINE Aged Out No longer eligi ble based on patient's age to complete this topic MENINGOCOCCAL (Group B) VACC INE SHARED DECISION-MAKING Aged Out No longer eligibl e based on patient's age to complete this topic MENINGOCOCCAL GROUPS A/C/Y/W VACCINE Aged Out No longer eligible b ased on patient's age to complete this topic Procedures Procedure Name Priority Date/Time Associated Diagnosis Comments HPV DETECTION HIGH RISK YAW Routine 10/17/2017 11:45 AM CDT Well woman exam with routine gynecological exam MAMMO BILAT SCREENING Routine 10/17/2017 9:14 AM CDT Breast cancer screening GLUCOSE Routine 09/27/2012 7:44 AM CDT LIPID PROFILE Routine 09/27/2012 7:44 AM CDT from Last 3 Months or Most Recently Relevant to Health Maintenance Results * HPV DETECTION HIGH RISK YAW (10/17/2017 11:45 AM CDT) High Risk Human Papilloma Result Not Detected Not Detected 10/21/2017 4:44 PM CDT [facility] High Risk Human Papilloma Interp 10/21/2017 4:44 PM CDT [facility] Comment:High Risk Human Jairo lloma Virus was Not Detected. Pathology/Cytolo gy MISCELLANEOUS SAMPLES / Unknown 10/17/2017 11:45 AM CDT 10/18/2017 11:45 AM CDT Narrative [facility] - 10/21/2017 4:44 PM CDT Nucleic acid isolated from the specimen was analyzed with a nucleic acid amplification test (FDA approved Gen-Probe HPV Assay) to detect high risk human papilloma virus (Types: 16, 18, 31, 33, 35, 39, 45, 51, 52, 56, 58, 59, 66, and 68). The reference range is Not Detected. Comment: These test results should not be used as the sole basis for clinical assessment and treatment of patients. These results should always be correlated with other available data (cytology, histology, and clinical information). us Jammie Arauz MD LAB - MICROBIOLOGY O RDERABLES Final Result [facility] [address] [phone] * MARITZA SCREENING DIGITAL IMAGE BILATERAL [id number] (10/17/2017 9:14 AM CDT) Anatomical Region Laterality Modality Breast Bilateral Mammography 10/17/2017 12:0 9 PM CDT Impressions 10/17/2017 12:14 PM CDT No mammographic evidence of malignancy in either breast. ASSESSMENT: BIRADS Category 1: Negative mammogram. RECOMMENDATION: Bilateral screening mammogram in one year. Thank you for allowing us to participate in the care of your patient. Reading Radiologist: Anneliese Fernando MD on 10/17/2017 at 12:14 PM Narrative 10/17/2017 12:14 PM CDT EXAMINATION: Digital screening mammogram on 10/17/2017. Low-dose full-field digital breast tomosynthesis examination was performed with synthetic 2D images and 3D acquisitions. Computer assisted detection was utilized. PRIOR: This is a Baseline BREAST PARENCHYMAL DENSITY: There are scattered areas of fibroglandular density. RISK ASSESSMENT CALCULATION: Based on the information provided by your patient, her lifetime risk of breast cancer is intermediate (15-20%). Additional quantitative risk model data and patient history details have been scanned as a document/letter in [facility] electronic medical record (media tab). Please note this information is only as accurate as the data entered by the patient. FINDINGS: No suspicious masses, areas of architectural distortion or microcalcifications are evident on synthetic 2D mammogram or tomosynthesis images. Jammie Arauz MD MAMMO ORDERABLES Fin al Result * (ABNORMAL) GLUCOSE (09/27/2012 7:44 AM CDT) [facility] Glucose 114(H) 65 - 99 mg/dL [facility] Comment: Fasting reference interval Test Performed at: [facility] [address] [place] [address] RAYRAY MACEDO DO,MPH Plasma specimen (specimen) 09/27/2012 7:44 AM CDT 09/27/2012 7:45 AM CDT Lonnie Sanford MD LAB - CHEMISTRY ORDERABLES Edited Result - Final Performing Organization Address City/State/[facility] Co de Phone Number [facility] [address] * (ABNORMAL) LIPID PROFILE (09/27/2012 7:44 AM CDT) Pathologist [facility] Cholesterol Total 205(H) 125 - 200 mg/dL [facility] HDL 30(L) > OR = 46 mg/dL [facility] Triglycerides 296(H) <150 mg/dL [facility] LDL Calculated 116 <130 mg/dL (calc) [facility] Comment: Desirable range <100 mg/dL for patients with CHD or diabetes and <70 mg/dL for diabetic patients with known heart disease. Chol/HDL Ratio 6.8(H) < OR = 5.0 (calc) [facility] Non HDL Cholesterol 175(H) mg/dL (calc) [facility] Comment: Target for non-HDL cholesterol is 30 mg/dL higher than LDL cholesterol target. Test Performed at: [facility] [address] [place] [address] RAYRAY MACEDO DO,MPH Venous blood specimen (specimen) 09/27/2012 7:44 AM CDT 09/27/2012 7:45 AM CDT Lonnie Sanford MD LAB - CHEMISTRY ORDERABLES Edited Result - Final [facility]) [address] [place], [place] [id number] [place] [address] from Last 3 Months or Most Recently Relevant to Health Maintenance Insurance [employer] [facility] Address: [facility] [address] [place] [address] [employer] Member Subscriber Plan / Payer (Ef fective 2012-Present) Name:Elisa Wells Relation to Subscriber:Spouse Name:ANTOLIN WELLS Subscriber ID:Not on file Date of :1975 Payer ID:[id number] (NAIC) Type:PPO Address: [address] [place] [id number] Care Teams Upper Leather Cutter Relationship Specialty Start Date End Date Cyndy Davidson MD [address] [place] [address] PCP - General 10/17/17
[2025-03-08 06:13] VITALS: BP 136/78; PULSE 98; RESP 18; TEMP 36.6; O2SAT 100; BMI 46.7
[2025-03-08 06:29] LABS: BEDSIDEPREGUCG Negative (Negative)
[2025-03-08] MEDS: LACTATED RINGERS 1,000 ML 150 ML IV CONT (06:37)
--- NOTE | 2025-03-08 07:15 | WPDANESEPPF ---
Anes - Initial Pre Proc Eval Procedure: Operation Date: 03/08/25 07:30 Proposed Procedures p Screening Colonoscopy - Chris Diaz DO Date/Time: 03/08/25 07:15 Surgeon: Chris Diaz DO Pre Op Diagnosis: Neoplasm screening Patient Data Age: 49 Gender: F Height: 1.73 m Weight: 139.5 kg Last Vital Signs Temp 36.6 C 03/08/25 06:13 Pulse 98 03/08/25 06:13 Resp 18 03/08/25 06:13 BP 136/78 03/08/25 06:13 Pulse Ox 100 03/08/25 06:13 O2 Del Method Room Air 03/08/25 06:13 Allergies Allergy/AdvReac Type Severity Reaction Status Date / Time No Known Allergies Allergy Unknown Verified 03/08/25 06:19 Home Medications ?Medication ?Instructions ?Recorded ?Confirmed ?Type omega 1-txj-ezb-fish oil 1,000 mg 1 cap PO BID 03/21/22 03/08/25 History (120 mg-180 mg) capsule (Fish Oil) hydroxyzine HCl 25 mg tablet 25 mg PO TID PRN anxiety #60 tabs 03/27/24 02/10/25 Rx spironolactone 100 mg tablet See Rx Instructions .Route 03/27/24 03/08/25 Rx .COMPLEX #100 tabs desloratadine 5 mg tablet See Rx Instructions .Route 04/03/24 03/08/25 Rx .COMPLEX #100 tabs rosuvastatin 5 mg tablet See Rx Instructions .Route 04/03/24 03/08/25 Rx .COMPLEX #100 tabs irbesartan 150 See Rx Instructions .Route 09/14/24 03/08/25 Rx mg-hydrochlorothiazide 12.5 mg .COMPLEX #100 tabs tablet levothyroxine 175 mcg tablet 175 mcg PO DAILY #108 tabs 09/14/24 03/08/25 Rx metformin 1,000 mg tablet See Rx Instructions .Route 09/14/24 03/08/25 Rx .COMPLEX #180 tabs tirzepatide 10 mg/0.5 mL 10 mg (0.5 mL) subcut WEEKLY #6 mL 09/18/24 03/08/25 Rx subcutaneous pen injector (Dipesh) cyclobenzaprine 10 mg tablet 10 mg PO TID PRN muscle spasm #15 12/24/24 02/10/25 Rx tabs lidocaine 5 % topical patch 1 patch topical DAILY #30 ea 12/24/24 02/10/25 Rx naproxen 500 mg tablet 500 mg PO BID PRN pain #20 tabs 12/24/24 02/10/25 Rx escitalopram oxalate 10 mg tablet 10 mg PO DAILY #90 tabs 01/20/25 03/08/25 Rx minocycline 100 mg capsule 100 mg PO DAILY 02/10/25 03/08/25 History Laboratory Tests 03/08/25 03/08/25 06:27 06:31 POC Capillary Glucose 153 H mg/dl (65-105) POC Urine HCG, Qual Negative (Negative) Patient hx anesthesia problems: none Family hx anesthesia problems: none Results Review: All pre-operative results and documents have been reviewed as part of the pre-operative evaluation. [facility] Past Medical History Medical History Bronchitis Flu-like symptoms Strep pharyngitis Subacute sinusitis Prediabetes Mixed hyperlipidemia Morbid obesity due to excess calories PCOS (polycystic ovarian syndrome) Hypothyroidism (acquired) Surgical History Surgical History History of tympanostomy tube placement History of laparoscopic cholecystectomy Family History Family History Father Hypertension Family history of coronary artery disease Family history of type 2 diabetes mellitus Thyroid cancer Bladder cancer Dementia Parkinson's disease Mother Hypertension Family history of type 2 diabetes mellitus Sibling Family history of type 2 diabetes mellitus Other Diabetes mellitus Family history of alcoholism Family history of malignant neoplasm of breast in first degree relative Family history of malignant neoplasm of cervix Social History Social History Social History: Smoking packs per day: 1 Smoking cigarettes per day: 20.0 Smoking status: Never smoker Tobacco type: cigarettes Second hand tobacco smoke exposure: No Smoking end date: 03/11/96 Alcohol intake: never Substance use: never Substance use type: does not use Lack of Transportation: No Lack of Food: Never True Current Housing: I Have Housing Concerned About Future Housing: No Difficulty Paying Gas/Electric Bills: No Difficulty Paying for Meds: No Currently Unemployed: No Education: Don't Know Difficulty w/ Childcare or Family Care: No Living arrangements: with family Occupation/Education: occupation Gender identity (if verbalized by the patient): Female Sexual Orientation (if Verbalized by the Patient): Straight or Heterosexual Spiritual care concerns: No Anes - Eval Final PreProcedure Day of Procedure 03/08/25 07:15 Patient weight: morbidly obese Heart: regular rate and rhythm Lungs: decreased breath sounds Airway: Mallampati scale class III Neurological: alert and oriented Last oral intake: >/= 8 hours ASA classification: III Emergent: no Anesthetic plan: proceed Anesthesia type and monitoring: general GIVS and standard monitoring Results Review: All pre-operative results and documents have been reviewed as part of the pre-operative evaluation. Informed Consent: The patient's anesthetic plan and its attendant risks and benefits were discussed with the patient/family/POA. Questions were solicited and answers provided to the satisfaction of the patient/family/POA.
--- NOTE | 2025-03-08 07:31 | PM.IMHP2 ---
H&P: HPI History of Present Illness Date/Time: 03/08/25 07:31 Chief Complaint: Screening for colorectal cancer Narrative: This is a 49-year-old woman who presents for her 1st colonoscopy. She denies any hematochezia or melena. She denies any family history of colon cancer. Review of Systems Review of Systems: All systems reviewed & are unremarkable except as noted in HPI and below Constitutional: Constitutional: Denies chills, Denies fever(s), Denies headache(s) and Denies weight loss Eyes: Eyes: Denies change in vision ENT: Denies dizziness, Denies headache(s), Denies neck mass and Denies throat swelling Cardiovascular: Cardiovascular: Denies chest pain, Denies lightheadedness and Denies dyspnea Respiratory: Respiratory: Denies cough, Denies dyspnea and Denies wheezing Gastrointestinal: Gastrointestinal: Denies abdominal pain, Denies change in bowel habits, Denies nausea and Denies vomiting Genitourinary: Genitourinary: Denies hematuria and Denies dysuria Musculoskeletal: Musculoskeletal: Reports as per HPI Integumentary/Breasts: Skin/Breast: Reports as per HPI Neurologic: Denies dizziness and Denies headache(s) Allergic/Immunologic: Allergic/Immunologic: Denies throat swelling and Denies wheezing PMFSH Past Medical History Medical History Bronchitis Flu-like symptoms Strep pharyngitis Subacute sinusitis Prediabetes Mixed hyperlipidemia Morbid obesity due to excess calories PCOS (polycystic ovarian syndrome) Hypothyroidism (acquired) Surgical History Surgical History History of tympanostomy tube placement History of laparoscopic cholecystectomy Family History Family History Father Hypertension Family history of coronary artery disease Family history of type 2 diabetes mellitus Thyroid cancer Bladder cancer Dementia Parkinson's disease Mother Hypertension Family history of type 2 diabetes mellitus Sibling Family history of type 2 diabetes mellitus Other Diabetes mellitus Family history of alcoholism Family history of malignant neoplasm of breast in first degree relative Family history of malignant neoplasm of cervix Social History Social History Social History: Smoking packs per day: 1 Smoking cigarettes per day: 20.0 Smoking status: Never smoker Tobacco type: cigarettes Second hand tobacco smoke exposure: No Smoking end date: 03/11/96 Alcohol intake: never Substance use: never Substance use type: does not use Lack of Transportation: No Lack of Food: Never True Current Housing: I Have Housing Concerned About Future Housing: No Difficulty Paying Gas/Electric Bills: No Difficulty Paying for Meds: No Currently Unemployed: No Education: Don't Know Difficulty w/ Childcare or Family Care: No Living arrangements: with family Occupation/Education: occupation Gender identity (if verbalized by the patient): Female Sexual Orientation (if Verbalized by the Patient): Straight or Heterosexual Spiritual care concerns: No Meds Home Medications and Allergies Home Medications ?Medication ?Instructions ?Recorded ?Confirmed ?Type omega 9-aeo-vkm-fish oil 1,000 mg 1 cap PO BID 03/21/22 03/08/25 History (120 mg-180 mg) capsule (Fish Oil) hydroxyzine HCl 25 mg tablet 25 mg PO TID PRN anxiety #60 tabs 03/27/24 02/10/25 Rx spironolactone 100 mg tablet See Rx Instructions .Route 03/27/24 03/08/25 Rx .COMPLEX #100 tabs desloratadine 5 mg tablet See Rx Instructions .Route 04/03/24 03/08/25 Rx .COMPLEX #100 tabs rosuvastatin 5 mg tablet See Rx Instructions .Route 04/03/24 03/08/25 Rx .COMPLEX #100 tabs irbesartan 150 See Rx Instructions .Route 09/14/24 03/08/25 Rx mg-hydrochlorothiazide 12.5 mg .COMPLEX #100 tabs tablet levothyroxine 175 mcg tablet 175 mcg PO DAILY #108 tabs 09/14/24 03/08/25 Rx metformin 1,000 mg tablet See Rx Instructions .Route 09/14/24 03/08/25 Rx .COMPLEX #180 tabs tirzepatide 10 mg/0.5 mL 10 mg (0.5 mL) subcut WEEKLY #6 mL 09/18/24 03/08/25 Rx subcutaneous pen injector (Dipesh) cyclobenzaprine 10 mg tablet 10 mg PO TID PRN muscle spasm #15 12/24/24 02/10/25 Rx tabs lidocaine 5 % topical patch 1 patch topical DAILY #30 ea 12/24/24 02/10/25 Rx naproxen 500 mg tablet 500 mg PO BID PRN pain #20 tabs 12/24/24 02/10/25 Rx escitalopram oxalate 10 mg tablet 10 mg PO DAILY #90 tabs 01/20/25 03/08/25 Rx minocycline 100 mg capsule 100 mg PO DAILY 02/10/25 03/08/25 History Allergies Allergy/AdvReac Type Severity Reaction Status Date / Time No Known Allergies Allergy Unknown Verified 03/08/25 06:19 Vital Signs Vital Signs - 24 hr 03/08/25 06:13 Temperature 97.8 F Pulse Rate 98 Respiratory Rate 18 Blood Pressure 136/78 Pulse Oximetry 100 Oxygen Delivery Room Air Exam Const: General: no acute distress and alert Orientation/consciousness: patient oriented x3 HENMT: Head: normocephalic and atraumatic Ears: hearing grossly normal bilaterally Face/Nose/Sinus: Normal nares present Mouth: Yes Normal oral and palatal mucosa present Eyes: Periorbital: periorbital findings normal Sclera: sclerae normal EOM: EOMs intact bilaterally Neck: Neck: normal visual inspection, no lymphadenopathy and trachea midline Chest: Chest palpation & inspection: normal inspection of the chest Resp: Effort & Inspection: normal respiratory effort Auscultation: clear to auscultation bilaterally Cardio: Jugular venous distension: no JVD Rate: regular rate Rhythm: regular rhythm Heart sounds: S1 normal heart sound present and S2 normal heart sound present Peripheral pulses: Peripheral pulses 2+ throughout GI: Inspection: normal to inspection GI Palp: Yes Soft to palpation, No Tenderness to palpation present (GI), No Guarding due to palpation present (GI) and No Rebound tenderness present Percussion: Yes normal to percussion Auscultation: normal bowel sounds : General: Yes no CVA tenderness Back/Spine/Pelvis: Back: no CVA tenderness Neuro: General: patient oriented x3, no focal motor deficits and CN's II-XI intact bilaterally Cognition (Neuro): normal cognition Speech: normal speech Motor exam (neuro): 5/5 motor strength present throughout Extrem: General: capillary refill normal and no clubbing, cyanosis or edema Assessment and Plan Assessment and plan (1) Screening for colorectal cancer: Code(s): Z12.11 - Encounter for screening for malignant neoplasm of colon; Z12.12 - Encounter for screening for malignant neoplasm of rectum Status: Acute Assessment and Plan: I have recommended colonoscopy. I have discussed the procedure, risks, benefits, and alternatives. Questions were answered. Patient is agreeable to proceed.
[2025-03-08 07:56] VITALS: BP 132/76; PULSE 81; RESP 18; O2SAT 98
[2025-03-08 08:06] VITALS: BP 122/77; PULSE 72; RESP 20; O2SAT 100
[2025-03-08 08:16] VITALS: BP 137/82; PULSE 72; RESP 18; O2SAT 100
== END 2025-03-08 08:30 | disposition home or self-care (01) ==
PROVIDERS: Anesthesiology; PCP Family Medicine; Visit Provider Surgery
PROC: 0DJD8ZZ Inspection of Lower Intestinal Tract, Via Natural or Artificial Opening Endoscopic (ICD-10-PCS; CPT 45378; principal; 2025-03-08 07:30)
DX: Z12.11 Encounter for screening for malignant neoplasm of colon (principal); Z87.891 Personal history of nicotine dependence; E66.01 Morbid (severe) obesity due to excess calories; Z68.42 Body mass index [BMI] 45.0-49.9, adult
CPT/HCPCS: 45378; 82948; J2704; J7120